=== PATIENT | male | born 1995 | race Two or more races ===

== ENCOUNTER 2025-01-18 20:08 | Emergency (ER) | payer SELFPAY ==
[~2025-01-18] VITALS: Ht 172.7 cm; Wt 133.7 kg
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
[2025-01-18] MEDS ORDERED: TIZA-142 PO (22:19)
[2025-01-18] MEDS ORDERED: IBUP-1456 PO (22:19)
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
[2025-01-18] MEDS ORDERED: AUG875T PO (22:22)
[2025-01-18 22:27] VITALS: BP 131/72; PULSE 119; RESP 20; TEMP 98.4; O2SAT 94
[2025-01-18] MEDS: ONDANSETRON ODT 4 MG TAB PO ONE (22:27)
== END 2025-01-18 22:41 | disposition home or self-care (01) ==
LOC: ER 20:08
DX: S13.4XXA Sprain of ligaments of cervical spine, initial encounter (principal); S00.83XA Contusion of other part of head, initial encounter; S09.8XXA Other specified injuries of head, initial encounter; Z79.899 Other long term (current) drug therapy; V89.2XXA Person injured in unspecified motor-vehicle accident, traffic, initial encounter; Y93.89 Activity, other specified; Y92.488 Other paved roadways as the place of occurrence of the external cause; Y99.8 Other external cause status
CPT/HCPCS: 70450; 72125; 99284; Q0162